=== PATIENT | male | born 1950 | race Caucasian/White ===

== ENCOUNTER → 2017-12-07 | Outpatient (REF) ==
[2014-03-04 15:30] VITALS: BMI 23.9
[~2017-12-07] MED LIST: ALBU8.5H IH; ALBU8.5H12 IH; CARV25TA78 PO; CETI-176 PO; CHOL10005 PO; CHOL200025 PO; CLOB15CR22 TP; CLOB15OI16 TP; DIPH-618 PO; DIPH0.5D12 IM; DOCU50LI19 FT; FERR325T24 PO; FEXO180T74 PO; FISH1200 PO; FISH1CAP17 PO; HYDEL PO; IBUP-56 PO; LISI-362 PO; MELA3TAB31 PO; METO5SOL18 PO; NIAC100040 PO; OMEP-125 PO; OMEP-218 PO; ONDA4TAB PO; OXYC-865 PO; PANT40TA65 PO; PNEU0.5D3 IM; SAW160CA26 PO; SAW450CA3 PO; SODI454P10 PO; SUCR1TAB51 PO; Sucralfate PO; TRIA15OI TP; TRIA15OI20 TP; VALE100C2 PO; VALE445C4 PO; ZOLP-358 PO; [UNRECOGNIZED DRUG - CODE] FT; [UNRECOGNIZED DRUG - CODE] PO
[2017-12-07 08:47] LABS: LDL CHOLESTEROL 129 mg/dl
== END ==
DX: Z02.9 Encounter for administrative examinations, unspecified (principal)